=== PATIENT | female | born 1965 | race Caucasian/White ===

== ENCOUNTER 2017-04-10 16:24 | Emergency (ER) | payer OTHER ==
[~2017-04-10] VITALS: Ht 162.6 cm; Wt 75.0 kg
[2017-04-10 16:37] VITALS: BP 188/75
[2017-04-10] MEDS ORDERED: KETOROLAC 30 MG/1 ML ONE (17:20)
[2017-04-10] MEDS ORDERED: KETOROLAC 30 MG/1 ML IM ONE (17:30)
== END 2017-04-10 17:57 | disposition home or self-care (01) ==
LOC: ED 17:15
DX: M54.41 Lumbago with sciatica, right side (principal); E11.9 Type 2 diabetes mellitus without complications
CPT/HCPCS: 82962; 96372; 99283; J1885